=== PATIENT | female | born 2000 | race African-American/Black ===

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

== ENCOUNTER 2019-07-11 07:57 | Emergency (ER) | payer SELFPAY ==
[2019-07-11] MEDS ORDERED: MAGNE/ALUM HYDROXD 30 ML UCUP ONE (08:23)
[2019-07-11] MEDS ORDERED: FAMOTIDINE 20 MG/2 ML VIAL IV ONE (08:24)
[2019-07-11] MEDS ORDERED: LIDOCAINE VISCOUS 2% SOLN 15 ML UDC ONE (08:24)
[2019-07-11 08:48] LABS: Absolute Lymphocytes (CBC) 1.2 K/uL (0.7-4.9); Basophils % 0.5 % (0-1.3); Hematocrit 36.6 % (36.0-45.0); Lymphocytes % 23.1 % (15.3-44.8); MPV 10.2 fL (7.6-11.3); RBC Red Blood Cell Count 4.03 M/uL (3.86-4.86)
[2019-07-11 09:06] LABS: ALT/SGPT 92 U/L (12-78); AST/SGOT 114 U/L (15-37); Albumin 3.7 g/dL (3.4-5.0); Alkaline Phosphatase 124 U/L (45-117); BUN Blood Urea Nitrogen 12 mg/dL (7-18); Bicarbonate 24 mmol/L (21-32); Bilirubin Direct 0.1 mg/dL (0-0.2); Bilirubin Total 0.2 mg/dL (0.2-1.0); Glucose Level 85 mg/dL (74-106); Lipase 311 U/L (73-393); Potassium 3.7 mmol/L (3.5-5.1); Protein, Total 7.8 g/dL (6.4-8.2); Sodium Level 141 mmol/L (136-145)
[2019-07-11 09:15] LABS: Urine Blood NEGATIVE (NEG); Urine Glucose NEGATIVE (NEG); Urine Protein TRACE (NEG); Urine Specific Gravity 1.025 (1.005-1.030)
--- NOTE | 2019-07-11 10:04 | EDPHYS ---
Physician Documentation [facility] Name: Leena Maravilla Age: 19 yrs Sex: Female : 2000 Arrival Date: 07/11/2019 Time: 08:00 Bed 14 Private MD: ED Physician Ru Davies HPI: 07/11 08:22 This 19 yrs old Black Female presents to ER via Unassigned with complaints of Abdominal jr8 Pain, Vomiting. 08:22 The patient presents with abdominal pain in the epigastric area. Onset: The jr8 symptoms/episode began/occurred last night. The symptoms do not radiate. Associated signs and symptoms: Pertinent positives: nausea and vomiting, Pertinent negatives: anorexia, blood in stools, chest pain, constipation, diarrhea, fever. The symptoms are described as burning. Severity of pain: At its worst the pain was mild. Pt reports epigastic and suprapubic pain that began last night after eating a pepperoni pizza. Had one episode of vomiting today. Currently reports mild pain and denies nausea. . 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 - Social history:: Smoking status: Patient/guardian denies using tobacco, but has a distant history of tobacco abuse. - Ebola Screening: : Patient denies exposure to infectious person Patient denies travel to an Ebola-affected area in the 21 days before illness onset. ROS: 08:22 Constitutional: Negative for fever, chills, and weight loss, Eyes: Negative for injury, jr8 pain, redness, and discharge, ENT: Negative for injury, pain, and discharge, Neck: Negative for injury, pain, and swelling, Cardiovascular: Negative for chest pain, palpitations, and edema, Respiratory: Negative for shortness of breath, cough, wheezing, and pleuritic chest pain, Abdomen/GI: Negative for abdominal pain, nausea, vomiting, diarrhea, and constipation, Back: Negative for injury and pain, MS/Extremity: Negative for injury and deformity, Neuro: Negative for headache, weakness, numbness, tingling, and seizure. 08:22 Abdomen/GI: Positive for abdominal pain, nausea and vomiting, Negative for diarrhea, constipation, abdominal cramps, abdominal distension, dysphagia, black/tarry stool, rectal pain. Exam: 08:22 Constitutional: This is a well developed, well nourished patient who is awake, alert, jr8 and in no acute distress. Head/Face: Normocephalic, atraumatic. Eyes: Pupils equal round and reactive to light, extra-ocular motions intact. Lids and lashes normal. Conjunctiva and sclera are non-icteric and not injected. Cornea within normal limits. Periorbital areas with no swelling, redness, or edema. ENT: Nares patent. No nasal discharge, no septal abnormalities noted. Tympanic membranes are normal and external auditory canals are clear. Oropharynx with no redness, swelling, or masses, exudates, or evidence of obstruction, uvula midline. Mucous membranes moist. Neck: Trachea midline, no thyromegaly or masses palpated, and no cervical lymphadenopathy. Supple, full range of motion without nuchal rigidity, or vertebral point tenderness. No Meningismus. Chest/axilla: Normal chest wall appearance and motion. Nontender with no deformity. No lesions are appreciated. Cardiovascular: Regular rate and rhythm with a normal S1 and S2. No gallops, murmurs, or rubs. Normal PMI, no JVD. No pulse deficits. Respiratory: Lungs have equal breath sounds bilaterally, clear to auscultation and percussion. No rales, rhonchi or wheezes noted. No increased work of breathing, no retractions or nasal flaring. Back: No spinal tenderness. No costovertebral tenderness. Full range of motion. MS/ Extremity: Pulses equal, no cyanosis. Neurovascular intact. Full, normal range of motion. Neuro: Awake and alert, GCS 15, oriented to person, place, time, and situation. Cranial nerves II-XII grossly intact. Motor strength 5/5 in all extremities. Sensory grossly intact. Cerebellar exam normal. Normal gait. 08:22 Abdomen/GI: Inspection: abdomen appears normal, Bowel sounds: normal, in all quadrants, Palpation: soft, in all quadrants, mild abdominal tenderness, in the epigastric area and suprapubic area, Indicators: McBurney's point is not tender, Parish's sign is negative, Rovsing's sign is negative, Obturator sign is negative, Psoas sign is negative. Vital Signs: 08:16 BP 127 / 80; Pulse 76; Resp 14; Temp 97.6(TE); Pulse Ox 100% on R/A; Pain 8/10; ss 09:26 BP 115 / 75; Pulse 74; Resp 16 S; Pulse Ox 100% on R/A; Pain 5/10; jl7 MDM: 08:14 Patient medically screened. [facility] 10:00 Data reviewed: vital signs, nurses notes, lab test result(s), radiologic studies, jr8 ultrasound. Data interpreted: Pulse oximetry: on room air is 100 %. Interpretation: normal. Counseling: I had a detailed discussion with the patient and/or guardian regarding: the historical points, exam findings, and any diagnostic results supporting the discharge/admit diagnosis, lab results, radiology results, the need for outpatient follow up, a family practitioner, to return to the emergency department if symptoms worsen or persist or if there are any questions or concerns that arise at home. Response to treatment: the patient's symptoms have markedly improved after treatment. 07/11 08:17 Order name: Basic Metabolic Panel; Complete Time: 09:07/11 08:17 Order name: CBC with Diff; Complete Time: 08:07/11 08:17 Order name: Creatinine for Radiology; Complete Time: :07/11 08:17 Order name: Hepatic Function; Complete Time: :07/11 08:17 Order name: Lipase; Complete Time: :07/11 08:33 Order name: Urine Dipstick--Ancillary (enter results); Complete Time: :07/11 08:17 Order name: IV Saline Lock; Complete Time: :07/11 08:17 Order name: Labs collected and sent; Complete Time: :07/11 08:17 Order name: Urine Dipstick-Ancillary (obtain specimen); Complete Time: :07/11 08:17 Order name: Urine Test (obtain specimen); Complete Time: 08:07/11 08:33 Order name: Urine --Ancillary (enter results); Complete Time: :07/11 09:22 Order name: US Abdomen Limited jr8 Administered Medications: 08:32 Drug: GI Cocktail without - (Maalox Suspension 30 ml, Lidocaine Liquid 2 % 15 jl7 ml) Route: PO; 09:00 Follow up: Response: No adverse reaction; Pain is decreased jl7 08:32 Drug: Pepcid 20 mg Route: IVP; Site: left antecubital; jl7 09:00 Follow up: Response: No adverse reaction; Pain is decreased jl7 Disposition: 10:32 Co-signature as Attending Physician, Ru Davies MD. rn Disposition: 07/11/19 10:02 Discharged to Home. Impression: Abnormal results of liver function studies, Gastritis, unspecified, without bleeding. - Condition is Stable. - Discharge Instructions: Gastritis, Adult. - Prescriptions for omeprazole 40 mg Oral capsule,delayed release(DR/EC) - take 1 capsule by ORAL route once daily for 14-21 days before a meal; 21 capsule. - Medication Reconciliation Form, Thank You Letter, Antibiotic Education, Prescription Opioid Use, Work release form form. - Follow up: Private Physician; When: 5 - 6 days; Reason: Recheck today's complaints, Continuance of care, Re-evaluation by your physician. - Problem is new. - Symptoms have improved. Signatures: Dispatcher [employer] EDMS Ru Davies MD MD rn Smirch, Shelby, RN RN ss Roszak, Josh, PA PA jr8 Bonnie Licea RN RN jl7 Corrections: (The following items were deleted from the chart) 10:17 10:02 07/11/2019 10:02 Discharged to Home. Impression: Abnormal results of liver jl7 function studies; Gastritis, unspecified, without bleeding. Condition is Stable. Forms are Medication Reconciliation Form, Thank You Letter, Antibiotic Education, Prescription Opioid Use. Follow up: Private Physician; When: 5 - 6 days; Reason: Recheck today's complaints, Continuance of care, Re-evaluation by your physician. Problem is new. Symptoms have improved. jr8
--- NOTE | 2019-07-11 10:04 | ER ---
Nurse's Notes [facility] Name: Leena Maravilla Age: 19 yrs Sex: Female : 2000 Arrival Date: 07/11/2019 Time: 08:00 Bed 14 Private MD: Diagnosis: Abnormal results of liver function studies;Gastritis, unspecified, without bleeding Presentation: 07/11 08:17 Presenting complaint: Patient states: lower abd discomfort that began yesterday evening ss after eating pizza. Patient also reports vomiting x1 this morning. Transition of care: patient was not received from another setting of care. Onset of symptoms was July 10, 2019. Risk Assessment: Do you want to hurt yourself or someone else? Patient reports no desire to harm self or others. Initial Sepsis Screen: Does the patient meet any 2 criteria? No. Patient's initial sepsis screen is negative. Does the patient have a suspected source of infection? No. Patient's initial sepsis screen is negative. Care prior to arrival: None. 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 - Social history:: Smoking status: Patient/guardian denies using tobacco, but has a distant history of tobacco abuse. - Ebola Screening: : Patient denies exposure to infectious person Patient denies travel to an Ebola-affected area in the 21 days before illness onset. Screenin:33 Abuse screen: Denies threats or abuse. Denies injuries from another. Nutritional jl7 screening: No deficits noted. Tuberculosis screening: No symptoms or risk factors identified. Fall Risk IV access (20 points). Total Hartman Fall Scale indicates No Risk (0-24 pts). Assessment: 08:33 General: Appears in no apparent distress. uncomfortable, Behavior is calm, cooperative, jl7 appropriate for age. Pain: Complains of pain in epigastric area, right upper quadrant and left upper quadrant Pain does not radiate. Pain currently is 8 out of 10 on a pain scale. Quality of pain is described as pressure, Pain began 1 day ago. Is continuous. Neuro: Level of Consciousness is awake, alert, obeys commands, Oriented to person, place, time, situation. Cardiovascular: Patient's skin is warm and dry. Respiratory: Airway is patent Respiratory effort is even, unlabored, Respiratory pattern is regular, symmetrical. GI: Abdomen is flat, non-distended, Stools are reported to be normal. Last BM was July 10, 2019. Bowel sounds present X 4 quads. Abd is soft X 4 quads Abdomen is tender to palpation in right lower quadrant and left lower quadrant Reports nausea, vomiting, Patient currently denies constipation, diarrhea. : Urine is cloudy, Denies burning with urination. Derm: Skin is dry, Skin is normal, Skin temperature is warm. 09:26 Reassessment: Patient appears in no apparent distress at this time. Patient and/or jl7 family updated on plan of care and expected duration. Pain level reassessed. Patient is alert, oriented x 3, equal unlabored respirations, skin warm/dry/pink. Patient states feeling better. Patient states symptoms have improved. Vital Signs: 08:16 BP 127 / 80; Pulse 76; Resp 14; Temp 97.6(TE); Pulse Ox 100% on R/A; Pain 8/10; ss 09:26 BP 115 / 75; Pulse 74; Resp 16 S; Pulse Ox 100% on R/A; Pain 5/10; jl7 ED Course: 08:00 Patient arrived in ED. rg4 08:02 Mazin Campbell PA is PHCP. jr8 08:02 Ru Davies MD is Attending Physician. jr8 08:16 Arm band placed on right wrist. ss 08:19 Bonnie Licea, HENRY is Primary Nurse. jl7 08:22 Triage completed. ss 08:33 Patient has correct armband on for positive identification. Placed in gown. Bed in low jl7 position. Call light in reach. Side rails up X 1. Pulse ox on. NIBP on. Warm blanket given. 08:33 Initial lab(s) drawn, by me, sent to lab. Urine collected: clean catch specimen, jl7 cloudy, marcelino colored. Inserted saline lock: 22 gauge in left antecubital area, using aseptic technique. Blood collected. 09:57 US Abdomen Limited In Process Unspecified. EDMS 10:16 No provider procedures requiring assistance completed. IV discontinued, intact, jl7 bleeding controlled, No redness/swelling at site. Pressure dressing applied. Administered Medications: 08:32 Drug: GI Cocktail without - (Maalox Suspension 30 ml, Lidocaine Liquid 2 % 15 jl7 ml) Route: PO; 09:00 Follow up: Response: No adverse reaction; Pain is decreased jl7 08:32 Drug: Pepcid 20 mg Route: IVP; Site: left antecubital; jl7 09:00 Follow up: Response: No adverse reaction; Pain is decreased jl7 Outcome: 10:02 Discharge ordered by . isaac 10:16 Discharged to home ambulatory. jl7 10:16 Condition: stable 10:16 Discharge instructions given to patient, family, Instructed on discharge instructions, follow up and referral plans. medication usage, Demonstrated understanding of instructions, follow-up care, medications, Prescriptions given X 1. 10:17 Patient left the ED. jl7 Signatures: Dispatcher [employer] EDNJ Dia Espino, RN RN Mazin Harrison PA PA jr8 Garcia, Rubi rg4 Bonnie Licea RN RN jl7
--- NOTE | 2019-07-11 10:52 | RAD REPORT ---
EXAM DESCRIPTION: US - Abdomen Exam Limited - 07/11/2019 10:42 am CLINICAL HISTORY: Abdominal pain. COMPARISON: None. FINDINGS: The gallbladder wall is not thickened. A gallstone is not seen. 7 millimeter polyp is pre sent within the gallbladder. The biliary tree is normal caliber. IMPRESSION: 7 millimeter gallbladder polyp. It is recommended patient follow up ultrasound in 6 maurice hs for re-evaluation
[2019-07-11 11:49] VITALS: BP 115/75; O2SAT 100
== END 2019-07-11 10:17 | disposition home or self-care (01) ==
LOC: ER 07:57
DX: K29.70 Gastritis, unspecified, without bleeding (principal)
CPT/HCPCS: 36415; 76705; 80048; 80076; 81003; 81025; 83690; 85025; 96374; 99284

== ENCOUNTER 2019-07-11 23:55 | Emergency (ER) | payer SELFPAY ==
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
[2019-07-12 04:37] VITALS: TEMP 98.7
[2019-07-14 18:21] VITALS: BP 122/79; O2SAT 100
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
== END 2019-07-12 03:00 | disposition home or self-care (01) ==
LOC: ER 23:55
DX: S06.0X9A Concussion with loss of consciousness of unspecified duration, initial encounter (principal); R04.0 Epistaxis; S13.4XXA Sprain of ligaments of cervical spine, initial encounter; Y08.89XA Assault by other specified means, initial encounter; Y93.9 Activity, unspecified; Y92.009 Unspecified place in unspecified non-institutional (private) residence as the place of occurrence of the external cause
CPT/HCPCS: 70450; 72125; 99284